=== PATIENT | female | born 1995 | race Caucasian/White ===

== ENCOUNTER 2019-03-18 06:29 | Observation (INO) ==
[2019-03-18] MEDS ORDERED: DIPRIVAN 1% ONE (06:52)
[2019-03-18] MEDS ORDERED: LR 1,000 ML ONE ×2 (06:56→11:27)
[2019-03-18] MEDS ORDERED: VALIUM ONE (06:56)
[2019-03-18] MEDS ORDERED: CLINDAMYCIN 900 MG/D5W 900 MG/50 ML IVPB ONE (06:56)
[2019-03-18] MEDS ORDERED: TRANSDERM-SCOP ONE (06:56)
[2019-03-18] MEDS ORDERED: CLINDAMYCIN 900 MG/NS 900 MG/50 ML IVPB IV ONE (07:00)
[2019-03-18] MEDS ORDERED: CLINDAMYCIN ONE (07:31)
[2019-03-18] MEDS ORDERED: CIPRODEX OTIC SUSPENSION ONE (07:31)
[2019-03-18] MEDS ORDERED: XYLOCAINE 1%/EPI 1:100,000 ONE (07:31)
[2019-03-18] MEDS ORDERED: BSS OPHTH SOLN ONE (07:31)
[2019-03-18] MEDS ORDERED: BACTROBAN OINTMENT ONE (07:31)
[2019-03-18] MEDS ORDERED: SUFENTA ONE (08:53)
[2019-03-18] MEDS ORDERED: AFRIN NASAL SPRAY ONE (08:55)
[2019-03-18] MEDS ORDERED: ROBINUL ONE (10:13)
[2019-03-18] MEDS ORDERED: OFIRMEV 1000 MG/ISOTONIC SOLN 1,000 MG/100 ML BOTTLE ONE (10:53)
[2019-03-18] MEDS ORDERED: NORCO-10 PO PRN (11:45)
[2019-03-18] MEDS ORDERED: NORCO-7.5 PO PRN (11:45)
[2019-03-18] MEDS: DILAUDID ONE ×2 (11:53→11:58)
[2019-03-18] MEDS: LR 1,000 ML IV SCH (12:30)
--- NOTE | 2019-03-18 12:37 | OPERATIVE NOTE ---
PROCEDURE DATE: 03/18/2019 PREOPERATIVE DIAGNOSES: 1. Left tympanic perforation. 2. Left thyroid mass. POSTOPERATIVE DIAGNOSES: 1. Left tympanic perforation. 2. Left thyroid mass. PROCEDURES PERFORMED: 1. Left Gelfilm myringoplasty. 2. Left total thyroid lobectomy. COMPLICATIONS: No complications. ANESTHESIA: General with endotracheal intubation. FINDINGS: 1. Left anterior myringoplasty was performed over central tympanic membrane defect with Gelfilm overlay graft. 2. 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 DESCRIPTION OF PROCEDURE: The patient was identified, consented. Options were reviewed. She was brought to the operating room and placed in a supine position where general anesthesia was induced with endotracheal intubation. The left ear was visualized under the operative microscope. Anterior inferior tympanic membrane mucocutaneous junction was abraded using a postage stamp technique around the edge of the dimeric perforation. This was in an attempt to create wound healing at the edge. The region was then covered along the entire anterior and inferior tympanic membrane with an overlay graft technique for a Gelfilm myringoplasty. The graft was stable. Next, attention was turned to thyroidectomy. The collar incision was marked and injected with lidocaine and epinephrine. The area was prepped and draped in the usual sterile fashion. The incision was created down to and through the platysma. Superior and inferior flaps were elevated in a subplatysmal plane. Meticulous attention was paid to hemostasis throughout the case. The left lobe was identified. The isthmus was sharply divided with the Bovie. Cautery allowed for hemostasis. The left lobe was delivered, having dissected the superior and inferior pole meticulously. Capsule dissection was used to spare the recurrent laryngeal nerve, which was identified and preserved. The middle thyroid vein was ligated. The lobe was delivered. Hemostasis was achieved. Frozen section analysis revealed oncocytic neoplasm. No definitive cancers noted. The wound was closed in the midline over a drain brought out through a separate stab incision with 4-0 Vicryl to close the strap muscles in the midline in a simple interrupted technique and then a three layer closure, deep and intermediate subcutaneous simple interrupted 4-0 Vicryl, and subcuticular 4-0 Prolene was used to close the incision. Mild gentle pressure dressing was applied. The patient was allowed to recover from anesthesia and transferred to the recovery room in stable condition. cc: Art Garibay MD
[2019-03-18] MEDS: NORCO-5 PO PRN ×3 (13:11→22:21)
[2019-03-18] MEDS ORDERED: SODIUM CHLORIDE 0.9% INJ PRN (14:24)
[2019-03-18] MEDS: PHENERGAN IV PRN ×2 (14:34→16:18)
[2019-03-18] MEDS: CLINDAMYCIN 600 MG/D5W 600 MG/50 ML IVPB IV SCH (16:35)
[2019-03-19] MEDS: CLINDAMYCIN 600 MG/D5W 600 MG/50 ML IVPB IV SCH ×2 (00:51→08:55)
[2019-03-19] MEDS: NORCO-5 PO PRN ×2 (02:21→07:15)
[2019-03-19] MEDS: PHENERGAN IV PRN (02:50)
[2019-03-19] MEDS: LR 1,000 ML IV SCH (09:24)
[2019-03-19 09:25] VITALS: BP 106/51
== END 2019-03-19 11:03 | disposition home or self-care (01) ==
LOC: ICU 06:29 → OPS 06:29
PROVIDERS: ADMIT Otolaryngology Otolaryngology/Facial Plastic Surgery; ATTEND Otolaryngology Otolaryngology/Facial Plastic Surgery
PROC: [UNRECOGNIZED PROCEDURE] (2019-03-18 08:49)